=== PATIENT | female | born 1930 | race Asian ===

== ENCOUNTER 2016-10-15 13:23 | Inpatient (IN) | payer OTHER ==
[~2016-10-15] VITALS: Ht 154.9 cm; Wt 47.6 kg
[2016-10-15 14:08] LABS: BASOPHILS % (AUTO) 0.2 % (0.0-2.0); DIFF TOTAL % 100 %; EOSINOPHILS % (AUTO) 0.5 % (0.0-6.0); HEMATOCRIT 39 % (33-45); HEMOGLOBIN 13.1 g/dL (11.5-14.8); LYMPHOCYTES # (AUTO) 1.2 /CMM (0.8-4.8); LYMPHOCYTES % (AUTO) 17.9 % (20.0-44.0); MEAN CORPUSCULAR HEMOGLOBIN 32 PG (26.0-33.0); MEAN CORPUSCULAR HGB CONC 33 g/dl (31.0-36.0); MEAN CORPUSCULAR VOLUME 95 fL (82-100); MONOCYTES # (AUTO) 0.4 /CMM (0.1-1.30); MONOCYTES % (AUTO) 5.6 % (2.0-12.0); NEUTROPHILS # (AUTO) 5.1 /CMM (1.8-8.9); NEUTROPHILS % (AUTO) 75.8 % (43.0-81.0); PLATELET COUNT (AUTO) 259 /CMM (150-450); RED BLOOD CELL COUNT(AUTO) 4.15 MIL/uL (4.0-5.2); WHITE BLOOD COUNT (AUTO) 6.7 K/uL (4.3-11.0)
[2016-10-15 14:19] LABS: ANION GAP 10 (5-14); CARBON DIOXIDE 29 mmol/L (21-32); CHLORIDE 104 mmol/L (98-107); CREATININE 0.9 mg/dL (0.6-1.3); GLUCOSE 105 mg/dL (74-106); POTASSIUM 4.2 mmol/L (3.5-5.1); SODIUM SERUM 139 mmol/L (136-145); UREA NITROGEN, BLOOD 13 mg/dL (7-18)
[2016-10-15 14:22] LABS: INR 0.94 (0.87-1.13); PROTHROMBIN TIME 9.9 SECS (9.5-12.7)
[2016-10-15 14:26] LABS: ALANINE AMINOTRANSFERASE 29 U/L (12-78); ASPARTATE AMINOTRANSFERASE 26 U/L (15-37); BILIRUBIN,DIRECT 0.1 mg/dL (0.0-0.2); BILIRUBIN,TOTAL 0.4 mg/dL (0.2-1.0); INDIRECT BILIRUBIN 0.3 mg/dL (0.0-1.1); TOTAL PROTEIN, SERUM 7.7 g/dL (6.4-8.2)
[2016-10-15 14:27] LABS: TROPONIN I < 0.017 ng/mL (0.00-0.056)
[2016-10-15 14:30] LABS: ADD UA MICROSCOPIC YES; KETONES,URINE Negative (NEGATIVE); LEUKOCYTE ESTERASE ,URINE Negative (NEGATIVE)
[2016-10-15] MEDS ORDERED: IV NS 0.9% 500 ML BAG IV ONE (14:30)
[2016-10-15 14:58] LABS: ADD URINE CULTURE NO; WBC,URINE 0-2 /HPF (0-3)
[2016-10-15] MEDS ORDERED: IV NS 0.9% 500 ML IV ONE (15:06)
[2016-10-15] MEDS ORDERED: IV NS 0.9% 1,000 ML IV PRN (15:36)
[2016-10-15] MEDS ORDERED: LATA2.5D7 EACHEYE (15:38)
[2016-10-15] MEDS ORDERED: MECL-102 PO (15:38)
[2016-10-15] MEDS ORDERED: PARO10TA26 PO (15:38)
[2016-10-15] MEDS ORDERED: DORZ10DR8 RIGHTEYE (15:38)
[2016-10-15] MEDS ORDERED: ALEN70TA45 PO (15:38)
[2016-10-15] MEDS ORDERED: MULT-24 PO (15:38)
[2016-10-15] MEDS ORDERED: PANT20TA2 PO (15:38)
[2016-10-15] MEDS ORDERED: CALC1TAB30 PO (15:38)
[2016-10-15] MEDS ORDERED: TIMO5DRO18 EACHEYE (15:38)
[2016-10-15] MEDS ORDERED: OXYB10TA PO (15:38)
[2016-10-15] MEDS ORDERED: ZOLPIDEM TARTRATE 5 MG TABLET PO PRN (16:00)
[2016-10-15] MEDS ORDERED: MECLIZINE HCL 25 MG TABLET PO PRN (16:00)
[2016-10-15] MEDS ORDERED: Z GUARD REMEDY 2 OZ OINT TP PRN (16:00)
[2016-10-15] MEDS ORDERED: ONDANSETRON HCL/PF 4 MG/2 ML VIAL IVP PRN (16:00)
[2016-10-15] MEDS ORDERED: ACETAMINOPHEN 325 MG TABLET PO PRN (16:00)
[2016-10-15] MEDS ORDERED: HYDROCODONE/APAP 5/325MG 1 EACH TABLET PO PRN (16:00)
[2016-10-15] MEDS ORDERED: MAG HYDROX/AL HYDROX/SIMETH 30 ML UDC PO PRN (16:00)
[2016-10-15] MEDS ORDERED: MAGNESIUM HYDROXIDE 30 ML UDC PO PRN (16:00)
[2016-10-15] MEDS ORDERED: DORZOLAMIDE OPTH 2% 10 ML BOTTLE RIGHTEYE SCH (17:00)
[2016-10-15] MEDS: TIMOLOL 0.5% SOLN OPHTH 5 ML BOTTLE EACHEYE SCH (18:04)
[2016-10-15 19:00] VITALS: BP 140/79
[2016-10-15] MEDS: DORZOLAMIDE OPTH 2% 10 ML BOTTLE EACHEYE SCH (21:42)
[2016-10-15 22:00] VITALS: BP 140/79
[2016-10-15] MEDS: LATANOPROST EYE DROP 0.005% 2.5 ML BOTTLE EACHEYE SCH (22:24)
[2016-10-16] VITALS: BP 112/71
[2016-10-16] MEDS ORDERED: IV SET PRIMARY PUMP SET 1 EA INFUS.SET MC ONE (05:42)
[2016-10-16 08:00] VITALS: BP 109/60
[2016-10-16 08:02] LABS: BASOPHILS % (AUTO) 0.3 % (0.0-2.0); DIFF TOTAL % 100 %; EOSINOPHILS % (AUTO) 0.5 % (0.0-6.0); HEMATOCRIT 36 % (33-45); HEMOGLOBIN 11.9 g/dL (11.5-14.8); LYMPHOCYTES # (AUTO) 1.2 /CMM (0.8-4.8); LYMPHOCYTES % (AUTO) 19.6 % (20.0-44.0); MEAN CORPUSCULAR HEMOGLOBIN 32 PG (26.0-33.0); MEAN CORPUSCULAR HGB CONC 33 g/dl (31.0-36.0); MEAN CORPUSCULAR VOLUME 96 fL (82-100); MONOCYTES # (AUTO) 0.5 /CMM (0.1-1.30); NEUTROPHILS # (AUTO) 4.4 /CMM (1.8-8.9); NEUTROPHILS % (AUTO) 71.6 % (43.0-81.0); PLATELET COUNT (AUTO) 225 /CMM (150-450); RED BLOOD CELL COUNT(AUTO) 3.76 MIL/uL (4.0-5.2); WHITE BLOOD COUNT (AUTO) 6.1 K/uL (4.3-11.0)
[2016-10-16 08:14] LABS: ALBUMIN 3.5 g/dL (3.4-5.0); BILIRUBIN,TOTAL 0.5 mg/dL (0.2-1.0); CALCIUM, SERUM 8.5 mg/dL (8.5-10.1); CREATININE 0.9 mg/dL (0.6-1.3); PHOSPHORUS 3.4 mg/dL (2.5-4.9); POTASSIUM 4.1 mmol/L (3.5-5.1); TOTAL PROTEIN, SERUM 7.1 g/dL (6.4-8.2)
[2016-10-16 08:17] LABS: THYROID STIMULATING HORMONE 1.556 uIU/mL (0.358-3.74)
[2016-10-16] MEDS: TIMOLOL 0.5% SOLN OPHTH 5 ML BOTTLE EACHEYE SCH ×2 (08:56→17:23)
[2016-10-16] MEDS: OXYBUTYNIN CHLORIDE ER 5 MG TAB PO SCH (08:56)
[2016-10-16] MEDS: PANTOPRAZOLE 40 MG TABLET.DR PO SCH (08:56)
[2016-10-16] MEDS: PAROXETINE HCL 10 MG TABLET PO SCH (08:56)
[2016-10-16] MEDS: CALCIUM CARB 600MG /VIT D 1 EACH TABLET PO SCH (08:56)
[2016-10-16] MEDS: MULTIVITAMINS,THERAPEUTIC 1 UDTAB TABLET PO SCH (08:56)
[2016-10-16 12:00] VITALS: BP 102/53
[2016-10-16 16:00] VITALS: BP 108/64
[2016-10-16 20:00] VITALS: BP 104/57
[2016-10-16] MEDS: DORZOLAMIDE OPTH 2% 10 ML BOTTLE EACHEYE SCH (21:17)
[2016-10-16] MEDS: LATANOPROST EYE DROP 0.005% 2.5 ML BOTTLE EACHEYE SCH (21:24)
[2016-10-17] VITALS: BP 112/57
[2016-10-17 00:06] VITALS: BP 112/57
[2016-10-17 04:00] VITALS: BP 105/68
[2016-10-17 06:51] VITALS: BP 108/60
[2016-10-17] MEDS: PANTOPRAZOLE 40 MG TABLET.DR PO SCH (07:34)
[2016-10-17 08:00] VITALS: BP 108/62
[2016-10-17] MEDS: OXYBUTYNIN CHLORIDE ER 5 MG TAB PO SCH (08:26)
[2016-10-17] MEDS: CALCIUM CARB 600MG /VIT D 1 EACH TABLET PO SCH (08:26)
[2016-10-17] MEDS: MULTIVITAMINS,THERAPEUTIC 1 UDTAB TABLET PO SCH (08:26)
[2016-10-17] MEDS: PAROXETINE HCL 10 MG TABLET PO SCH (08:26)
[2016-10-17] MEDS: TIMOLOL 0.5% SOLN OPHTH 5 ML BOTTLE EACHEYE SCH (08:26)
[2016-10-20] MEDS ORDERED: ALENDRONATE 70 MG TABLET PO SCH (07:30)
== END 2016-10-17 13:15 | disposition home or self-care (01) | DRG 74 ==
LOC: ER 13:27 → TELE 16:00 → MED 10-17 08:57
PROVIDERS: ADMIT Family Medicine; ATTEND Family Medicine
DX: G90.8 Other disorders of autonomic nervous system (principal); M48.56XA Collapsed vertebra, not elsewhere classified, lumbar region, initial encounter for fracture; M81.0 Age-related osteoporosis without current pathological fracture; S00.93XA Contusion of unspecified part of head, initial encounter; H40.9 Unspecified glaucoma; G89.29 Other chronic pain; F32.9 Major depressive disorder, single episode, unspecified; I10 Essential (primary) hypertension; R42 Dizziness and giddiness; R56.9 Unspecified convulsions
CPT/HCPCS: 36415; 70450-TC; 71010-TC; 80048-TC; 80053-TC; 80061-TC; 80076-TC; 81000-TC; 83735-TC; 84100-TC; 84443-TC; 84484-TC; 85025-TC; 85730-TC; 87081-TC; 93307-TC; 95819-TC; 97001-TC; A4606; J7030; J7040; Z7610

== ENCOUNTER 2018-04-04 11:58 | Emergency (ER) | payer OTHER ==
[~2018-04-04] VITALS: Ht 160 cm; Wt 47.6 kg
[~2018-04-04 11:58] MED LIST: ALEN70TA45 PO; CALC1TAB30 PO; DORZ10DR10 RIGHTEYE; LATA2.5D7 EACHEYE; MECL-102 PO; MULT-24 PO; OXYB10TA PO; PANT20TA2 PO; PARO10TA86 PO; TIMO5DRO18 EACHEYE
--- NOTE | 2018-04-04 12:00 | NUR ---
911 CALL FROM NEIGHBOR FOR WELLIR CHECK- PT LIVES ALONE IN [place]T, FOUND IN THE BATHROOM COVERED WITH BLOOD AND FECES, UNLIVABLE. NAD NOTED, VSS, RESP EVEN AND UNLABORED, PT WAS PUT ON MONITOR AND HOSPITAL GOWN. WAITING FOR
--- NOTE | 2018-04-04 12:12 | NUR ---
[facility] [phone]
[2018-04-04 12:28] LABS: BASOPHILS # (AUTO) 0.3 /CMM (0.0-0.2); BASOPHILS % (AUTO) 2.2 % (0.0-2.0); HEMATOCRIT 44 % (33-45); HEMOGLOBIN 14.3 g/dL (11.5-14.8); LYMPHOCYTES # (AUTO) 1.1 /CMM (0.8-4.8); LYMPHOCYTES % (AUTO) 7.7 % (20.0-44.0); MEAN CORPUSCULAR HEMOGLOBIN 31 PG (26.0-33.0); MEAN CORPUSCULAR HGB CONC 33 g/dl (31.0-36.0); MEAN CORPUSCULAR VOLUME 94 fL (82-100); MONOCYTES # (AUTO) 0.8 /CMM (0.1-1.30); MONOCYTES % (AUTO) 5.4 % (2.0-12.0); NEUTROPHILS # (AUTO) 12.1 /CMM (1.8-8.9); NEUTROPHILS % (AUTO) 84.7 % (43.0-81.0); PLATELET COUNT (AUTO) 538 /CMM (150-450); RDW COEFFICIENT OF VARIATION 12.9 (11.5-15.0); RED BLOOD CELL COUNT(AUTO) 4.65 MIL/uL (4.0-5.2); WHITE BLOOD COUNT (AUTO) 14.3 K/uL (4.3-11.0)
[2018-04-04] MEDS ORDERED: IV NS 0.9% 1,000 ML BAG IV ONE (12:30)
[2018-04-04 12:43] LABS: CALCIUM, SERUM 8.8 mg/dL (8.5-10.1); CARBON DIOXIDE 24 mmol/L (21-32); CHLORIDE 102 mmol/L (98-107); CREATININE 0.9 mg/dL (0.6-1.3); GLUCOSE 132 mg/dL (74-106); POTASSIUM 4.1 mmol/L (3.5-5.1); SODIUM SERUM 136 mmol/L (136-145); UREA NITROGEN, BLOOD 44 mg/dL (7-18)
[2018-04-04 12:47] LABS: INR 1.02 (0.85-1.15)
[2018-04-04 12:49] LABS: ACETAMINOPHEN 0 ug/ml (10-30); ALANINE AMINOTRANSFERASE 28 U/L (12-78); ALCOHOL, BLOOD < 3 mg/dL (0-0); ALKALINE PHOSPHATASE 81 U/L (46-116); ASPARTATE AMINOTRANSFERASE 37 U/L (15-37); BILIRUBIN,DIRECT 0.1 mg/dL (0.0-0.2); BILIRUBIN,TOTAL 0.3 mg/dL (0.2-1.0); SALICYLATE 2.1 mg/dL (2.8-20.0); TOTAL PROTEIN, SERUM 7.6 g/dL (6.4-8.2)
[2018-04-04 12:51] LABS: TROPONIN I < 0.017 ng/mL (0.00-0.056)
[2018-04-04 12:58] LABS: APPEARANCE,URINE Slightly Cloudy (CLEAR); BILIRUBIN,URINE MODERATE (NEGATIVE); BLOOD, URINE Moderate Ery/uL (NEGATIVE); COLOR,URINE Yellow (YELLOW); KETONES,URINE 80 (NEGATIVE); LEUKOCYTE ESTERASE ,URINE Negative (NEGATIVE); NITRITE, URINE Negative (NEGATIVE); PROTEIN,URINE 100 mg/dl (NEGATIVE); UGLUCOSE Negative (NEGATIVE); UROBILINOGEN,URINE 0.2 EU/dL (0.2)
--- NOTE | 2018-04-04 12:58 | NUR ---
CALLED NURSING MAIL OPENER FOR BED, STATES SHE WILL TAKE REPORT IN PERSON.
[2018-04-04 13:29] LABS: CREATINE KINASE MB 6.6 ng/mL (0-3.6)
[2018-04-04 14:34] LABS: BACTERIA,URINE Moderate /HPF (None Seen); SQUAMOUS EPITHELIAL CELL,UR Few /HPF (None Seen); WBC,URINE 0-2 /HPF (0-3)
--- NOTE | 2018-04-04 15:07 | NUR ---
[facility] [phone]
--- NOTE | 2018-04-04 16:37 | NUR ---
RECEIVED A CALL FROM THE PT[employer]; PT HAS BEEN ACCEPTED AT [facility]. PT IS ASSIGNED TO #: [id number]. NUMBER FOR REPORT IS [phone] WILL RECEIVE A CALL BACK WITH TRANSPORT ETA AND INFO
--- NOTE | 2018-04-04 16:57 | NUR ---
RECEIVED A CALL FROM [facility], AND WAS TOLD THAT THE PT WOULD BE PICKED UP AT [address] LEMA IS THE ACCEPTING MD.
[2018-04-04 17:30] VITALS: BP 134/75
--- NOTE | 2018-04-04 17:41 | NUR ---
REPORT WAS GIVEN TO EDILIA ARANDA FROM [facility]. 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 FAMILY WILL ACCOMPANY PATIENT
== END 2018-04-04 18:04 | disposition short-term general hospital (02) ==
LOC: ER 12:05
DX: R53.1 Weakness (principal); E86.0 Dehydration; I10 Essential (primary) hypertension; F32.9 Major depressive disorder, single episode, unspecified; H40.9 Unspecified glaucoma; Z90.49 Acquired absence of other specified parts of digestive tract; Z90.89 Acquired absence of other organs; Z88.0 Allergy status to penicillin; Z88.1 Allergy status to other antibiotic agents; Z88.6 Allergy status to analgesic agent
CPT/HCPCS: 36415; 70450; 71045; 80048; 80076; 80305; 80329; 81001; 82550; 82553; 82962; 84484; 85025; 85730; 87086; 93005; 96360; 99285; A4606; G0480 ×2; J7030; 81000-TC; Z7610